=== PATIENT | female | born 1955 | race Caucasian/White ===

== ENCOUNTER → 2016-08-10 | Outpatient (CLI) | payer BC | LOC: COL.VAS 11:12 | DX: I34.0 Nonrheumatic mitral (valve) insufficiency (principal); R01.1 Cardiac murmur, unspecified ==

== ENCOUNTER → 2016-11-26 | Outpatient (CLI) | payer BC | LOC: MC.RAD 10-29 09:40 | DX: Z12.31 Encounter for screening mammogram for malignant neoplasm of breast (principal) ==

== ENCOUNTER → 2017-07-13 | Outpatient (CLI) | payer BC | LOC: ZCOL.LAB 16:03 | DX: J32.0 Chronic maxillary sinusitis (principal) ==

== ENCOUNTER → 2017-10-14 | Outpatient (CLI) | payer BC | LOC: COL.CARD 07:21 | DX: Z01.810 Encounter for preprocedural cardiovascular examination (principal); J32.9 Chronic sinusitis, unspecified ==

== ENCOUNTER → 2019-06-14 | Outpatient (CLI) | payer BC | LOC: MC.RAD 08:29 | DX: Z12.31 Encounter for screening mammogram for malignant neoplasm of breast (principal) ==

== ENCOUNTER 2019-07-31 07:46 | Day surgery (SDC) | payer BC ==
[~2019-07-31] VITALS: Ht 165.1 cm; Wt 66.0 kg
[2019-07-31 08:15] VITALS: BP 114/69; PULSE 75; TEMP 98.8
[2019-07-31] MEDS ORDERED: SYNTHROID0.088 MG/T PO (08:27)
[2019-07-31] MEDS ORDERED: PROZAC40 MG PO (08:27)
[2019-07-31] MEDS ORDERED: LIPITOR 10MG10 MG PO (08:28)
[2019-07-31] MEDS ORDERED: NORVASC 10MG10 MG PO (08:28)
[2019-07-31] MEDS ORDERED: BUSPAR DIVIDOSE15 MG PO (08:29)
[2019-07-31] MEDS ORDERED: ATIVAN 0.50.5 MG/TAB PO (08:30)
[2019-07-31] MEDS ORDERED: ZYRTEC 10MG10 MG PO (08:31)
[2019-07-31] MEDS ORDERED: PRILOTC PO (08:31)
[2019-07-31 09:20] VITALS: BP 110/59; PULSE 71; TEMP 98.6
--- NOTE | 2019-07-31 09:20 | NUR ---
Pt to [facility] via cart from ENDO. Pt drowsy, but awake. Pt ambulates to recliner with stand by assistance x2. in room. Warm blankets placed on pt. VSS. Muffin and juice provided per request. Pt denies pain or nausea. Will continue to monitor. Call light within reach.
[2019-07-31 09:35] VITALS: BP 108/61; PULSE 65
--- NOTE | 2019-07-31 09:35 | NUR ---
Pt tolerating food and fluids without diffiuclties. Call light within reach.
--- NOTE | 2019-07-31 09:50 | NUR ---
Discharge instructions reviewed. Pt voices understanding. IV site discontinued with all parts intact by Jessie BONILLA. Pt up to dress. Call light within reach.
--- NOTE | 2019-07-31 10:00 | NUR ---
Pt escorted to private car via wheel chair. Pt accompanied home by her .
== END 2019-07-31 10:00 | disposition home or self-care (01) ==
LOC: SDCO 07:46
DX: Z12.11 Encounter for screening for malignant neoplasm of colon (principal); K62.89 Other specified diseases of anus and rectum; K21.9 Gastro-esophageal reflux disease without esophagitis; I10 Essential (primary) hypertension; F41.9 Anxiety disorder, unspecified; J45.909 Unspecified asthma, uncomplicated; E03.9 Hypothyroidism, unspecified; Z79.899 Other long term (current) drug therapy; Q27.30 Arteriovenous malformation, site unspecified; K22.2 Esophageal obstruction
CPT/HCPCS: J2704; J7120

== ENCOUNTER → 2020-07-10 | Outpatient (CLI) | payer BC ==
[~2020-07-10] MED LIST: ATIVAN 0.50.5 MG/TAB PO; BUSPAR DIVIDOSE15 MG PO; LIPITOR 10MG10 MG PO; NORVASC 10MG10 MG PO; PRILOTC PO; PROZAC40 MG PO; SYNTHROID0.088 MG/T PO; ZYRTEC 10MG10 MG PO
== END ==
LOC: MC.RAD 08:11
DX: Z12.31 Encounter for screening mammogram for malignant neoplasm of breast (principal)

== ENCOUNTER → 2020-07-19 | Outpatient (CLI) | payer BC | LOC: COL.RAD 10:30 | DX: K42.9 Umbilical hernia without obstruction or gangrene (principal); R31.29 Other microscopic hematuria ==